=== PATIENT | female | born 1980 ===

== ENCOUNTER 2023-04-01 06:17 | Inpatient (IN) | payer OTHER ==
[2023-03-27 13:30] VITALS: BMI 30.9
[2023-04-01] MEDS ORDERED: MIDAZOLAM HCL 2 MG/2 ML SINGLE DOSE VIAL ONE ×2 (08:09→09:26)
[2023-04-01] MEDS ORDERED: PROPOFOL 20 ML ONE ×2 (08:11→09:25)
[2023-04-01] MEDS ORDERED: ROCURONIUM BROMIDE 50 MG/5 ML SYRINGE ONE ×2 (08:11→09:28)
[2023-04-01] MEDS ORDERED: KETOROLAC TROMETHAMINE 30 MG/1 ML VIAL ONE (08:12)
[2023-04-01] MEDS ORDERED: ONDANSETRON 4 MG/2 ML VIAL ONE (08:12)
[2023-04-01] MEDS ORDERED: DEXAMETHASONE SOD PHOSPHATE 4 MG/1 ML VIAL ONE (08:12)
[2023-04-01] MEDS ORDERED: ceFAZolin SODIUM 1 GM VIAL ONE ×2 (08:13)
[2023-04-01] MEDS ORDERED: ROPIVACAINE HCL 0.5% 30ML VIAL ONE (09:19)
[2023-04-01] MEDS ORDERED: DEXAMETHASONE SOD PHOSPHATE 10 MG/1 ML VIAL ONE (09:19)
[2023-04-01] MEDS ORDERED: SUCCINYLCHOLINE CHLORIDE 200 MG/10 ML SYRINGE ONE (09:26)
[2023-04-01] MEDS ORDERED: ceFAZolin SODIUM 1 GM VIAL IVPB ONE (10:06)
[2023-04-01] MEDS ORDERED: NEOSTIGMINE METHYLSULFATE 0.5 MG/1 ML - 10 ML MDV ONE (10:49)
[2023-04-01] MEDS ORDERED: PROMETHAZINE HCL 25 MG/1 ML VIAL IVPB PRN (11:41)
[2023-04-01] MEDS ORDERED: oxyCODONE HCL 5 MG TABLET PO PRN ×2 (11:41→11:45)
[2023-04-01] MEDS ORDERED: IBUPROFEN 800 MG/8 ML IJ IVPB PRN (11:41)
[2023-04-01] MEDS ORDERED: LACTATED RINGERS SOLUTION 1,000 ML IV SCH (11:45)
[2023-04-01] MEDS ORDERED: CEFAZOLIN SODIUM 2 GM VIAL IVPB SCH (11:45)
[2023-04-01] MEDS ORDERED: ACETAMINOPHEN 1000 MG/100 ML BAG IVPB PRN (11:47)
[2023-04-01] MEDS: ELECTROLYTE-148 SOLN 1,000 ML IV SCH ×2 (12:48→21:00)
[2023-04-01] MEDS ORDERED: HYDROmorphone *PCA* 10MG/50ML DISP.SYRIN PCA SCH (13:15)
[2023-04-01] MEDS: CEFAZOLIN SODIUM 2 GM in DEXTROSE 5%-WATER 100 ML IVPB SCH (18:26)
[2023-04-02] MEDS: CEFAZOLIN SODIUM 2 GM in DEXTROSE 5%-WATER 100 ML IVPB SCH ×2 (01:33→09:52)
[2023-04-02] MEDS: SIMETHICONE 80 MG TAB.CHEW (FP) PO PRN ×3 (01:36→21:22)
[2023-04-02] MEDS: ONDANSETRON 4 MG/2 ML VIAL IVPUSH PRN ×2 (02:44→09:45)
[2023-04-02 08:30] LABS: HEMATOCRIT 33.8 % (32.4-45.2); HEMOGLOBIN 11.4 GM/dL (10.7-15.3); MCH 27.1 pg (25.7-33.7); MCHC 33.6 g/dl (32.0-36.0); MEAN CELL VOLUME 80.7 fl (80-96); MEAN PLT VOLUME 7.3 fl (7.5-11.1); PLATELET COUNT 217 10^3/uL (134-434); RBC 4.18 M/mm3 (3.60-5.2); RDW 14.6 % (11.6-15.6); WHITE BLOOD COUNT 7.3 K/mm3 (4.0-10.0)
[2023-04-02 08:42] LABS: POTASSIUM 3.8 mmol/L (3.5-5.1)
[2023-04-02 08:44] LABS: BLOOD UREA NITROGEN 8.7 mg/dL (7-18); CALCIUM 8.3 mg/dL (8.5-10.1)
[2023-04-02 08:45] LABS: ALBUMIN 3.1 g/dl (3.4-5.0)
[2023-04-02 08:48] LABS: CREATININE 0.6 mg/dL (0.55-1.3)
[2023-04-02 08:49] LABS: BILIRUBIN,TOTAL 0.4 mg/dL (0.2-1)
[2023-04-02] MEDS: ENOXAPARIN NA (PORCINE) 40 MG/0.4 ML DISP.SYRIN SQ SCH (09:48)
[2023-04-02] MEDS: SENNOSIDES 8.6MG TABLET (FP) PO SCH ×2 (09:52→21:22)
[2023-04-02] MEDS: ELECTROLYTE-148 SOLN 1,000 ML IV SCH (14:00)
[2023-04-02] MEDS: IBUPROFEN 600 MG TABLET (FP) PO PRN ×2 (15:38→21:22)
[2023-04-03] MEDS: SIMETHICONE 80 MG TAB.CHEW (FP) PO PRN (05:10)
[2023-04-03] MEDS: IBUPROFEN 600 MG TABLET (FP) PO PRN ×2 (05:10→09:41)
[2023-04-03] MEDS: SENNOSIDES 8.6MG TABLET (FP) PO SCH (09:40)
[2023-04-03] MEDS: ENOXAPARIN NA (PORCINE) 40 MG/0.4 ML DISP.SYRIN SQ SCH (09:40)
[2023-04-03 10:46] VITALS: BP 131/93; PULSE 78; RESP 17; TEMP 98.5
== END 2023-04-03 11:55 | disposition home or self-care (01) | DRG 519 ==
LOC: J2C 06:17 → J3W 14:31
PROVIDERS: ADMIT Obstetrics & Gynecology; ATTEND Obstetrics & Gynecology
PROC: 0UT70ZZ Resection of Bilateral Fallopian Tubes, Open Approach (ICD-10-PCS; 2023-04-01)
PROC: 0DNW0ZZ Release Peritoneum, Open Approach (ICD-10-PCS; 2023-04-01)
PROC: 0UT90ZL Resection of Uterus, Supracervical, Open Approach (ICD-10-PCS; principal; 2023-04-01 08:30)
DX: D25.9 Leiomyoma of uterus, unspecified (principal); N73.6 Female pelvic peritoneal adhesions (postinfective); N93.8 Other specified abnormal uterine and vaginal bleeding
CPT/HCPCS: 36415; 80053; 81025; 85027; 86850; 86900; 86901; 88302-TC; 88307-TC; 94760; J1100